=== PATIENT | male | born 1970 | race Caucasian/White ===

== ENCOUNTER 2018-04-03 02:34 | Observation (INO) | payer OTHER, SELFPAY ==
[2018-04-03] VITALS (11 sets, daily range): BP systolic 110–148; BP diastolic 73–90; PULSE 65–97; RESP 16–18; TEMP 36.4–37.4; O2SAT 16–99; BMI 27.4
--- NOTE | 2018-04-03 | APP_PTH ---
PATIENT: VEDA SPARKS LOC: MS3 U#:[id number] AGE/SX: 47/M ROOM: VT315 RE04/03/[address]: Dr. Chandrika Pierson MD : 1970 BED: 1 DIS: 04/03/2018 SPEC #: [id number] RECD: 04/03/18 10:49 STATUS: SHAWN RETiburcio #: [id number] ANNE: 04/03/18 00:[address]: Chandrika Pierson DEPT: SURGICAL PATHOLOGY RECD BY: Erlin Cotton ENTERED: 04/03/18 10:49 SP TYPE: APPENDIX HUMAIRA DR: No Primary Care Phys Tissues: Appendix, NOS Procedures: Surgery Specimen Level III HEADER OPERATION: Laparoscopic appendectomy PRE-OP DIAGNOSIS: Acute appendicitis TISSUE SUBMITTED: Appendix MICROSCOPIC DIAGNOSIS Appendix, appendectomy: Acute appendicitis and periappendicitis. See comment. KATIANA:shaan 04/04/18 COMMENT The yellowish area at the tip shows increase amount of adipose tissue in the submucosa. Case has been reviewed in consultation with Dr. Nicolas who concurs with the above diagnosis. IDC:AM MICROSCOPIC DESCRIPTION Slides are reviewed. GROSS DESCRIPTION Received is one container labeled with the patient's name and designated appendix. The specimen consists of an appendix measuring 7 cm in length and up to 1.5 cm in average diameter. The attached periappendiceal adipose tissue measures up to 2 cm in width. The serosa is congested. No obvious perforation is identified. Sections reveal a blandon-yellow area at the tip measuring 0.6 x 0.5 x 0.5 cm. The lumen contains fecal material. No fecalith is identified. Sections of the periappendiceal adipose tissue do not reveal any obviously enlarged lymph node. The entire specimen is submitted in seven cassettes as follows: 1-5 ? appendix (1 containing tip and 5 also contains the most proximal portion, inked black), 6?&?7 - periappendiceal adipose tissue. / SJ:shaan 04/03/18 TC:2 CPT: 23974
--- NOTE | 2018-04-03 02:41 | CT_ITS ---
STUDY: CT ABDOMEN AND PELVIS WITHOUT CONTRAST REASON FOR EXAM: Male, 47 years old. Intermittent mid abdominal and right lower quadrant pain for several days. RADIATION DOSAGE (If Supplied By Facility): CTDIvol = ( 8.72 ) mGy, DLP = ( 490.44 ) mGycm TECHNIQUE: Transaxial images were obtained from the dome of the diaphragm to the symphysis pubis without oral contrast, and without intravenous contrast. Sagittal and coronal images were reconstructed. Individualized dose optimization techniques were used for this CT. COMPARISON: None. FINDINGS: The visualized lung bases are unremarkable. The visualized portions of the heart are within normal limits. Normal liver. Normal gallbladder and extrahepatic biliary system. Normal spleen. Normal pancreas. Normal bilateral adrenal glands. Normal right kidney. Normal left kidney. Normal visualized stomach. Normal small intestine. Normal colon. Enlarged retrocecal appendix dilated to 1.5 cm. Within the base of the appendix is a 0.8 cm appendicolith. Periappendiceal inflammatory changes. No intra-abdominal free air. Findings well seen on axial images 73 through 99 series 2. Normal abdominal aorta. Normal inferior vena cava. Normal retroperitoneum. Normal urinary bladder. Prostate gland are not enlarged. Normal abdominal wall. Normal osseous structures. CT/Abdomen/Pelvis without Cont IMPRESSION: Acute appendicitis without evidence of perforation. Retrocecal appendix,appendicolith and periappendiceal inflammatory changes. N.B. : The above information has been verbally conveyed by Davi Santos MD to Travis Bettencourt, Referring Physician, on 04/03/2018 03:46:22 (ET). Electronically Signed: Davi Santos MD at 3:26 EDT , Service support , N.B. : The above information has been verbally conveyed by Davi Santos MD to Travis Bettencourt, Referring Physician, on 04/03/2018 03:46:22 (ET).
[2018-04-03] MEDS: 0.9% Normal Saline 1,000 ML 125 ML IV (02:50)
[2018-04-03 03:08] LABS: AST(SGOT) 33 U/L (15-37); Alanine Aminotransfer ALT/SGPT 49 U/L (16-61); Albumin, Serum 3.8 g/dL (3.2-5.0); Alkaline Phosphatase 86 U/L (45-117); Anion Gap 5 (5-15); BUN 11 mg/dL (7-18); BUN/Creat Ratio 10.9 RATIO (10-20); Chloride 106 mmol/L (98-107); Creatinine, Serum 1.01 mg/dL (0.70-1.30); EST Glomerular Filtration Rate 84 mL/min (>60); Est Glom Filt Rate - Afr Amer 102 mL/min (>60); Globulin 3.9 g/dL (2.2-4.2); Glucose 123 mg/dL (74-106); Lipase 137 U/L (73-393); Potassium 3.6 mmol/L (3.5-5.1); Protein, Total 7.7 g/dL (6.4-8.2); Sodium Level 138 mmol/L (136-145)
[2018-04-03] MEDS: Morphine 4 MG/ML Syringe IV ×2 (03:42→04:01)
[2018-04-03] MEDS: Ondansetron 4 MG/2 ML Vial IV ×2 (03:43→04:54)
--- NOTE | 2018-04-03 03:54 | EKG12_ITS ---
Test Reason : PRE-OP Blood Pressure : / mmHG Vent. Rate : 082 BPM Atrial Rate : 082 BPM P-R Int : 140 ms QRS Dur : 090 ms QT Int : 360 ms P-R-T Axes : 064 017 034 degrees QTc Int : 420 ms Normal sinus rhythm Normal ECG Confirmed by LONNIE KNOWLES, BUBBA ([id number]), social media editor SEAN CHAVARRIA ([id number]) on 04/03/2018 5:13:54 PM Referred By: VIDA/ANNETTE Confirmed By:BUBBA FLEMING MD
[2018-04-03] MEDS: Ciprofloxacin 400 MG/200 ML BAG 200 MG IV (04:01)
--- NOTE | 2018-04-03 04:01 | ED.RN ---
NO OLD EKG'S IN MUSE
[2018-04-03 04:10] LABS: Absolute Lymphocyte Count 2.11 X10^3/ul (0.83-4.51); Absolute Neutrophil Count 13.1 X10^3/uL (2.0-7.7); Basophil# 0.04 X10^3/uL; Basophil% 0.2 % (0-1); Eosinophil# 0.13 X10^3/uL; Eosinophils% 0.7 % (0-5); Hematocrit 42.2 % (40-54); Hemoglobin 14.8 g/dl (13.0-16.5); Lymphocyte # 2.11 X10^3/ul (4.0); Lymphocyte % 12.1 % (19-41); Mean Corp Hgb Conc 35.1 g/gl (32-36); Mean Corpuscular Hgb 30.4 pg (27.0-32.0); Mean Corpuscular Volume 86.7 fL (80-94); Monocyte# 1.98 X10^3/uL; Monocyte% 11.4 % (0-10); Neutrophil % 75.4 % (47-70); POSITIVE COUNT NO; POSITIVE DIFFERENTIAL YES; POSITIVE MORPHOLOGY NO; Platelet Count 317 K/mm3 (150-450); RBC Distribution Width CV 12.1 % (11.6-14.6); RBC Distribution Width SD 38.4 fl (35.1-43.9); Red Blood Count 4.87 M/mm3 (4.6-6.2); White Blood Count 17.4 K/mm3 (4.4-11.0)
[2018-04-03 04:11] LABS: Differential Indicated SCAN CRITERIA MET
--- NOTE | 2018-04-03 04:17 | ED.VISSUMM ---
- ER Visit Summary Date of Service: 04/03/18 Chief Complaint: Abdominal pain History of Present Illness: The patient is a 47 M presenting for evaluation secondary to abdominal pain. Patient states that since Sunday he has been having intermittent abdominal pain. He describes it as it being epigastric and having some radiation over to his right flank. He states that it was coming and going, did not really seem to have any sort of exacerbating relieving factors other than occasionally it seem to get better when he ate. Patient reports that he had a severe worsening of pain this evening. It is now associated with some nausea and vomiting. He denies that he has had any objective fevers but does state that he feels somewhat sweaty and feverish. Denies any urinary signs or symptoms. Review of systems otherwise negative. Physical Examination: Vital signs are within normal limits, patient is afebrile. General: Patient is well-nourished well-developed and in no acute distress. He is visibly in a mild amount of pain Head: Normocephalic, atraumatic Eyes: Pupils equal round and reactive bilaterally, extra occular motion intact bialterally ENT: Moist mucous membranes Neck: Supple, no lymphadenopathy, no JVD, no meningismus CVS: Heart regular rate and rhythm, no murmurs, rubs or gallops, radial pulses 2+ bilaterally Resp: Respirations nondistressed, lung sounds clear bilaterally Abdomen: Soft, tenderness noted in the right lower quadrant with no guarding or rebound tenderness. Negative obturator psoas Rovsing and Lennon sign. No evidence of flank tenderness., nondistended, no palpable masses, normal bowel sounds Back: Nontender Extremities: Nontender, atraumatic, active full range of motion, no peripheral edema Skin: warm, no rashes, no petechia, diaphoretic Neuro: Alert and oriented x 4, CN 2-12 intact, no lateralizing neurological defecits Psyc: Normal affect Test Results: CT abdomen and pelvis demonstrates nonperforated appendicitis with an appendicolith. Emergency Department Course and Treatment: Patient presented with abdominal pain. He described his pain as being epigastric but his physical exam really localized in his right lower quadrant. CT demonstrated the patient to have nonperforated appendicitis. I contacted Dr. Pierson as the patient had no surgical preference and no primary care physician. Patient was administered Cipro and Flagyl in the emergency department preoperatively and as well was treated with morphine and Zofran for treatment of pain and nausea. He was kept n.p.o. Patient will be taken to the operating room for definitive management. Disposition: Operating room Impression: 1. Acute appendicitis This note was generated with [employer] dictation software. It may contain incorrect words, spelling, and punctuation that were not noted in review of the chart prior to signing ED Disposition - Plan for ED Patient: Chief Complaint: Abd Pain
[2018-04-03 04:35] LABS: Bacteria 0 SEEN /hpf (None Seen); Mucous, Urine 0 SEEN /hpf (<or=2+); Red Blood Cells-Urine 0 SEEN /hpf (0-5); White Blood Cells 0 SEEN /hpf (0-5)
[2018-04-03 04:38] LABS: Differential Comment SCANNED
[2018-04-03 04:51] LABS: Color, Urine Yellow (Yellow); Glucose, Dipstick Normal (Normal); Ketone-Dipstick Negative (Negative); Leukocyte Esterase-Dipstick Negative /ul (Negative); Nitrite-Dipstick Negative (Negative); Occult Blood-Urine Negative /ul (Negative); Protein-Dipstick Negative (Negative); Urine Bilirubin Dipstick Negative (Negative); Urine Clarity Clear (Clear); Urine Urobilinogen Normal (Normal)
[2018-04-03 04:52] LABS: Squamous Epithelial Cells - UA 0-5 SEEN /hpf (0-5)
[2018-04-03] MEDS: Morphine 4 MG/ML Syringe IM (04:54)
--- NOTE | 2018-04-03 05:14 | PCM.HP.STD ---
History of Present Illness Date of Admission: 04/03/18 The patient is a 47 year old M presented to the ER due to new right lower quadrant pain starting about midnight. Patient states that since Sunday he has not been feeling well and had, epigastric/right-sided pain on and off Sunday and Sunday. Patient last ate at 9:15 PM some boneless wings. Did did have nausea and vomiting ?1 no fevers or chills. Last bowel movement was earlier this morning small. Patient states that he got new right lower quadrant pain about midnight which got a little bit better and then by 2 AM had gotten worse so he came to the ER. CT abdomen pelvis that showed dilated appendix along with appendicolith. Patient's white blood count 17.4. He was started on Cipro Flagyl in the ER for acute appendicitis. Past Medical History Allergies Penicillins Allergy (Verified 04/03/18 02:39) Unknown Home Medications: Ambulatory Orders Medication Instructions Recorded NK [NK] 04/03/18 Surgical History: no surgical history Psychiatric History: No pertinent psych hx Lives: Spouse/ Significant Other Smoking Status: Never smoker - *Family History Maternal History Items: No pertinent history Review of Systems Constitutional: Reports: Anorexia. Denies: Chills, Fever Cardiovascular: Denies: Chest Pain Respiratory: Denies: Shortness of Breath Gastrointestinal: Reports: Abdominal Pain, Nausea, Vomiting VTE Information - Inpt Only VTE Present on Admission: Yes VTE Mechan Device Prophylaxis: SCD's VTE Pharm Prophylaxis ordered?: No Reason prophylaxis not ordered:: Treatment Not Indicated - Physical Exam General: Alert, Oriented x3, Cooperative HEENT: Atraumatic Lungs: Normal air movement Cardiovascular: Regular rate, Regular Rhythm Abdomen: Soft, Non-Distended, Rebound Tenderness - Mild, Tender - Right lower quadrant Extremities: No clubbing, No cyanosis, No edema Neurological: Cranial nerves II-XII grossly intact Psych/Mental Status: Normal Affect Vital Signs Temp Pulse Resp BP Pulse Ox 99.4 F H 76 18 139/87 H 94 04/03/18 05:10 04/03/18 05:10 04/03/18 05:10 04/03/18 05:10 04/03/18 05:10 Oxygen Delivery Method Room Air Weight: 197 lb 1.492 oz Body Mass Index (BMI) 27.4 Laboratory Tests Past 24 Hrs 04/03/18 04/03/1804/03/18 02:35 02:35 04:31 WBC 17.4 H RBC 4.87 Hgb 14.8 Hct 42.2 MCV 86.7 MCH 30.4 MCHC 35.1 RDW 12.1 RDW Differential 38.4 Plt Count 317 MPV 10.0 Immature Gran % (Auto) 0.200 Neut % (Auto) 75.4 H Lymph % (Auto) 12.1 L [place] % (Auto) 11.4 H Eos % (Auto) 0.7 Baso % (Auto) 0.2 Absolute Neuts (auto) 13.1 H Absolute Lymphs (auto) 2.11 Total Counted Not Reportable Differential Comment SCANNED Diff Path Review February foll Sodium 138 Potassium 3.6 Chloride 106 Carbon Dioxide 27.0 Anion Gap 5 BUN 11 Creatinine 1.01 Est GFR (MDRD) Af Amer 102 Est GFR (MDRD) Non-Af 84 BUN/Creatinine Ratio 10.9 Glucose 123 H Calcium 9.0 Total Bilirubin 0.40 AST 33 ALT 49 Alkaline Phosphatase 86 Total Protein 7.7 Albumin 3.8 Globulin 3.9 Albumin/Globulin Ratio 1.0 Lipase 137 Urine Color Yellow Urine Clarity Clear Urine pH 7.0 Ur Specific [place] 1.010 Urine Protein Negative Urine Glucose (UA) Normal Urine Ketones Negative Urine Occult Blood Negative Urine Nitrite Negative Urine Bilirubin Negative Urine Urobilinogen Normal Ur Leukocyte Esterase Negative Urine RBC 0 SEEN Urine WBC 0 SEEN Ur Squamous Epith Cells 0-5 SEEN Urine Bacteria 0 SEEN Urine Mucus 0 SEEN Assessment/Plan 47-year-old male with acute appendicitis and a leukocytosis of 17.4. 1. Discussed procedure laparoscopic appendectomy, possible open, possible bowel resection along with the risk but not limited to bleeding, infection/abscess, injury to another organ (small bowel, colon, etc.), adhesion, hernia at incision sites, and anesthesia. Patient has had no further questions at this time. Chandrika Pierson M.D. Pager: [phone] [facility] [address] [place] [address], [address] [place] [address] Office: [phone]
--- NOTE | 2018-04-03 05:18 | HP.PCM_ITS ---
History of Present Illness Date of Admission: 04/03/18 The patient is a 47 year old M presented to the ER due to new right lower quadrant pain starting about midnight. Patient states that since Sunday he has not been feeling well and had, epigastric/right-sided pain on and off Sunday and Sunday. Patient last ate at 9:15 PM some boneless wings. Did did have nausea and vomiting ?1 no fevers or chills. Last bowel movement was earlier this morning small. Patient states that he got new right lower quadrant pain about midnight which got a little bit better and then by 2 AM had gotten worse so he came to the ER. CT abdomen pelvis that showed dilated appendix along with appendicolith. Patient's white blood count 17.4. He was started on Cipro Flagyl in the ER for acute appendicitis. Past Medical History Allergies Penicillins Allergy (Verified 04/03/18 02:39) Unknown Home Medications: Ambulatory Orders Medication Instructions Recorded NK [NK] 04/03/18 Surgical History: no surgical history Psychiatric History: No pertinent psych hx Lives: Spouse/ Significant Other Smoking Status: Never smoker - *Family History Maternal History Items: No pertinent history Review of Systems Constitutional: Reports: Anorexia. Denies: Chills, Fever Cardiovascular: Denies: Chest Pain Respiratory: Denies: Shortness of Breath Gastrointestinal: Reports: Abdominal Pain, Nausea, Vomiting VTE Information - Inpt Only VTE Present on Admission: Yes VTE Mechan Device Prophylaxis: SCD's VTE Pharm Prophylaxis ordered?: No Reason prophylaxis not ordered:: Treatment Not Indicated - Physical Exam General: Alert, Oriented x3, Cooperative HEENT: Atraumatic Lungs: Normal air movement Cardiovascular: Regular rate, Regular Rhythm Abdomen: Soft, Non-Distended, Rebound Tenderness - Mild, Tender - Right lower quadrant Extremities: No clubbing, No cyanosis, No edema Neurological: Cranial nerves II-XII grossly intact Psych/Mental Status: Normal Affect Vital Signs Temp Pulse Resp BP Pulse Ox 99.4 F H 76 18 139/87 H 94 04/03/18 05:10 04/03/18 05:10 04/03/18 05:10 04/03/18 05:10 04/03/18 05:10 Oxygen Delivery Method Room Air Weight: 197 lb 1.492 oz Body Mass Index (BMI) 27.4 Laboratory Tests Past 24 Hrs 04/03/18 04/03/1804/03/18 02:35 02:35 04:31 WBC 17.4 H RBC 4.87 Hgb 14.8 Hct 42.2 MCV 86.7 MCH 30.4 MCHC 35.1 RDW 12.1 RDW Differential 38.4 Plt Count 317 MPV 10.0 Immature Gran % (Auto) 0.200 Neut % (Auto) 75.4 H Lymph % (Auto) 12.1 L [place] % (Auto) 11.4 H Eos % (Auto) 0.7 Baso % (Auto) 0.2 Absolute Neuts (auto) 13.1 H Absolute Lymphs (auto) 2.11 Total Counted Not Reportable Differential Comment SCANNED Diff Path Review February foll Sodium 138 Potassium 3.6 Chloride 106 Carbon Dioxide 27.0 Anion Gap 5 BUN 11 Creatinine 1.01 Est GFR (MDRD) Af Amer 102 Est GFR (MDRD) Non-Af 84 BUN/Creatinine Ratio 10.9 Glucose 123 H Calcium 9.0 Total Bilirubin 0.40 AST 33 ALT 49 Alkaline Phosphatase 86 Total Protein 7.7 Albumin 3.8 Globulin 3.9 Albumin/Globulin Ratio 1.0 Lipase 137 Urine Color Yellow Urine Clarity Clear Urine pH 7.0 Ur Specific [place] 1.010 Urine Protein Negative Urine Glucose (UA) Normal Urine Ketones Negative Urine Occult Blood Negative Urine Nitrite Negative Urine Bilirubin Negative Urine Urobilinogen Normal Ur Leukocyte Esterase Negative Urine RBC 0 SEEN Urine WBC 0 SEEN Ur Squamous Epith Cells 0-5 SEEN Urine Bacteria 0 SEEN Urine Mucus 0 SEEN Assessment/Plan 47-year-old male with acute appendicitis and a leukocytosis of 17.4. 1. Discussed procedure laparoscopic appendectomy, possible open, possible bowel resection along with the risk but not limited to bleeding, infection/ abscess, injury to another organ (small bowel, colon, etc.), adhesion, hernia at incision sites, and anesthesia. Patient has had no further questions at this time. Chandrika Pierson M.D. Pager: [phone] [facility] [address] [place] [address], [address] [place] [address] Office: [phone]
--- NOTE | 2018-04-03 05:39 | NURSING ---
called report to surgery, let them know that flagyl will have to be started in the ER. report sent to med surg. consent signed.
--- NOTE | 2018-04-03 06:51 | PCM.OPRPT ---
Report of Operation Date of Procedure: 04/03/18 Pre-Operative Diagnosis: Acute appendicitis Post-Operative Diagnosis: Same Surgery/Procedure Performed:: Laparoscopic appendectomy transactional paralegal: Benja Martin Type of Anesthesia:: General Anesthesiologist: Temi Jacobson Special Medications: Cipro 400 mg IV ?1 in the ER and Flagyl 500 mg IV ?1 in OR for acute appendicitis Specimen's removed: Appendix Estimated Blood Loss (mL): <10 cc Fluids Replaced: 1000 cc Description of Procedure: Indications: 47-year-old male presented to the ER with new right lower quadrant pain at midnight. On workup he was found to have acute appendicitis on CT and a leukocytosis of 17.4. Patient was started on antibiotics in the ER for acute appendicitis-Cipro and Flagyl IV. Description of the procedure: The patient was placed on operating table in supine position. General anesthesia was induced. A timeout was completed verifying correct patient, procedure, sacrum position and special, prior to beginning procedure. A Douglass catheter and orogastric tube placed. Abdomen was prepped and draped in usual sterile fashion. Incision was made in the natural skin line above the umbilicus with a 15 blade scalpel. The fascia was elevated and incised. Entry into the peritoneum was confirmed visually and no bowel was noted in the vicinity of the incision. The [place] trocar was placed under direct vision. Abdomen insufflated with a pressure of 12-15 mmHg. Patient tolerated insertion well. The scope was inserted and the abdomen inspected. No injuries from initial trocar placement were noted. Minimal amount of fluid was seen in the right lower quadrant. An direct visualization 2 -5 mm trocars were placed one above the symptoms his pubis and below the hairline and one in the left lower quadrant lateral to the rectus muscle. Care is taken to avoid injury to the bladder and inferior epigastric vessels. The table was placed in Trendelenburg position with the right side elevated. The appendix was grasped with atraumatic grasper and elevated. It was noted to be inflamed. A window was developed in the mesoappendix at the point between the base of the appendix and the cecum. An endoscopic 45 mm linear cutting stapler blue load was then used to divide and staple the base of the appendix. It was reloaded with a vascular load and the mesoappendix similarly divided. The appendix was withdrawn into the Malone trocar after being placed endoscopically retrieval bag. Appendix was sent to pathology. The appendiceal stump was then irrigated and hemostasis was assured. Fluid was suctioned no other pathology was identified. Secondary trochars were removed under direct visualization. No bleeding was noted trocar sites. The laparoscope withdrawn and the umbilical trocar removed. The abdomen was allowed to collapse. Local anesthesia of 24 mL of 0.5% Marcaine was used at the incision sites. The umbilical trocar site was closed with the [id number] 0 Vicryl suture. The skin was closed up to clear sutures of 4-0 Monocryl and Steri-Strips. The patient was extubated. The patient tolerated the procedure well and was taken to the postanesthesia care unit in satisfactory condition. - Complications none
[2018-04-03] MEDS: Bupivacaine Mpf 0.5% 30 ML VIAL (06:53)
--- NOTE | 2018-04-03 06:54 | OP.PCM_ITS ---
Report of Operation Date of Procedure: 04/03/18 Pre-Operative Diagnosis: Acute appendicitis Post-Operative Diagnosis: Same Surgery/Procedure Performed:: Laparoscopic appendectomy benefits representative: Benja Martin Type of Anesthesia:: General Anesthesiologist: Temi Jacobson Special Medications: Cipro 400 mg IV ?1 in the ER and Flagyl 500 mg IV ?1 in OR for acute appendicitis Specimen's removed: Appendix Estimated Blood Loss (mL): <10 cc Fluids Replaced: 1000 cc Description of Procedure: Indications: 47-year-old male presented to the ER with new right lower quadrant pain at midnight. On workup he was found to have acute appendicitis on CT and a leukocytosis of 17.4. Patient was started on antibiotics in the ER for acute appendicitis-Cipro and Flagyl IV. Description of the procedure: The patient was placed on operating table in supine position. General anesthesia was induced. A timeout was completed verifying correct patient, procedure, sacrum position and special, prior to beginning procedure. A Douglass catheter and orogastric tube placed. Abdomen was prepped and draped in usual sterile fashion. Incision was made in the natural skin line above the umbilicus with a 15 blade scalpel. The fascia was elevated and incised. Entry into the peritoneum was confirmed visually and no bowel was noted in the vicinity of the incision. The Malone trocar was placed under direct vision. Abdomen insufflated with a pressure of 12-15 mmHg. Patient tolerated insertion well. The scope was inserted and the abdomen inspected. No injuries from initial trocar placement were noted. Minimal amount of fluid was seen in the right lower quadrant. An direct visualization 2 -5 mm trocars were placed one above the symptoms his pubis and below the hairline and one in the left lower quadrant lateral to the rectus muscle. Care is taken to avoid injury to the bladder and inferior epigastric vessels. The table was placed in Trendelenburg position with the right side elevated. The appendix was grasped with atraumatic grasper and elevated. It was noted to be inflamed. A window was developed in the mesoappendix at the point between the base of the appendix and the cecum. An endoscopic 45 mm linear cutting stapler blue load was then used to divide and staple the base of the appendix. It was reloaded with a vascular load and the mesoappendix similarly divided. The appendix was withdrawn into the Malone trocar after being placed endoscopically retrieval bag. Appendix was sent to pathology. The appendiceal stump was then irrigated and hemostasis was assured. Fluid was suctioned no other pathology was identified. Secondary trochars were removed under direct visualization. No bleeding was noted trocar sites. The laparoscope withdrawn and the umbilical trocar removed. The abdomen was allowed to collapse. Local anesthesia of 24 mL of 0.5 % Marcaine was used at the incision sites. The umbilical trocar site was closed with the [id number] 0 Vicryl suture. The skin was closed up to clear sutures of 4-0 Monocryl and Steri-Strips. The patient was extubated. The patient tolerated the procedure well and was taken to the postanesthesia care unit in satisfactory condition. - Complications none
--- NOTE | 2018-04-03 07:02 | PCM.DC.APPY ---
Discharge Diet: Light diet - advance as tolerated Discharge Activity: May not drive while taking narcotic pain medications. May shower in (days): 1 Lifting Restrictions: no lifting >20 lb for 4 weeks, no strenous exercise for 8 weeks Call your doctor if your incision/area has: Continuous Slow Oozing, Sudden Increased Bleeding, Increased Pain/ Swelling, Increased Redness, Foul Smelling Discharge, Swelling at the incision site Call your doctor if you observe: Fever of 101 or Higher Remove Dressing in (days):: 1 Additional Instructions: [place] may cause constipation-take colace- stool softener daily. OK to take ibuprofen 200-600 mg PO q6h prn pain with food between doses. if no BM for 1-2 day take several doses of miralax, if no results take 1/2 bottle of magnesium citrate and if no results in 6 hrs take the other half. Medications to take at Discharge Hydrocodone Bitart/Apap 5-325 [[place] 5MG-325MG] 1 - 2 tablet PO Q6H PRN PRN 4 Days #25 tablet 04/03/18 Allergies/Adverse Reactions: Allergies Penicillins Allergy (Verified 04/03/18 02:39) Unknown The following prescriptions were given: Hydrocodone Bitart/Apap 5-325 [[place] 5MG-325MG] 1 - 2 tablet PO Q6H PRN PRN 4 Days #25 tablet PRN Reason: Pain Primary Care Physician: Care Physician,No Primary [Primary Care Provider] - Please Follow Up With: Chandrika Pierson MD - after 5pm/weekend call [phone] with any issues When: call office tomorrow for appt in 2 weeks. Proposed Discharge Date: 04/03/18
--- NOTE | 2018-04-03 07:06 | DCINST_ITS ---
Discharge Diet: Light diet - advance as tolerated Discharge Activity: May not drive while taking narcotic pain medications. May shower in (days): 1 Lifting Restrictions: no lifting >20 lb for 4 weeks, no strenous exercise for 8 weeks Call your doctor if your incision/area has: Continuous Slow Oozing, Sudden Increased Bleeding, Increased Pain/ Swelling, Increased Redness, Foul Smelling Discharge, Swelling at the incision site Call your doctor if you observe: Fever of 101 or Higher Remove Dressing in (days):: 1 Additional Instructions: [place] may cause constipation-take colace- stool softener daily. OK to take ibuprofen 200-600 mg PO q6h prn pain with food between doses. if no BM for 1-2 day take several doses of miralax, if no results take 1/2 bottle of magnesium citrate and if no results in 6 hrs take the other half. Medications to take at Discharge Hydrocodone Bitart/Apap 5-325 [[place] 5MG-325MG] 1 - 2 tablet PO Q6H PRN PRN 4 Days #25 tablet 04/03/18 Allergies/Adverse Reactions: Allergies Penicillins Allergy (Verified 04/03/18 02:39) Unknown The following prescriptions were given: Hydrocodone Bitart/Apap 5-325 [[place] 5MG-325MG] 1 - 2 tablet PO Q6H PRN PRN 4 Days #25 tablet PRN Reason: Pain Primary Care Physician: Care Physician,No Primary [Primary Care Provider] - Please Follow Up With: Chandrika Pierson MD - after 5pm/weekend call with any issues When: call office tomorrow for appt in 2 weeks. Proposed Discharge Date: 04/03/18
[2018-04-03] MEDS: Lactated Ringers 1,000 ML 125 ML IV (09:56)
--- NOTE | 2018-04-03 11:34 | NURSING ---
PT pascual clear liquid diet. Was able to eat regular diet one hour ago and has kept it down thus far. Pt denies need for pain medication, It's just a little sore. Pt is aware that he needs to ambulate and urinate yet in order to go home. VS have been wnl. Will continue to monitor.
--- NOTE | 2018-04-03 12:55 | NURSING ---
Pt walked into bathroom, voided lg amt of urine. ambulated in atkins. Denies slight pain, but denies need for pain meds. Going to discharge pt. Dr. Pierson called around 10:20 this morning and was informed pt doing well. She was okay with pt being discharged.
[2018-04-03 13:56] LABS: Pathologist Review Reviewed
== END 2018-04-03 13:10 | disposition home or self-care (01) ==
LOC: ED 03:09 → SDC 04:05 → MS3 07:44 → SDC 04-04 07:21
PROVIDERS: Admitting Provider Surgery; Emergency Provider Emergency Medicine; Visit Provider Surgery
PROC: 0DTJ4ZZ Resection of Appendix, Percutaneous Endoscopic Approach (ICD-10-PCS; CPT 44970; principal; 2018-04-03 06:00)
DX: K35.80 Unspecified acute appendicitis (principal); J45.909 Unspecified asthma, uncomplicated
CPT/HCPCS: 44970; 74176; 80053; 81001; 83690; 85025; 88304; 93005; 96361; 96365; 96372; 96375; 96376; 99284; J7030; J7120; A4216; C1760; J0744; J2405